=== PATIENT | female | born 1960 | race Hispanic/Latino ===

== ENCOUNTER 2018-12-25 11:08 | Day surgery (SDC) | payer MEDICARE ==
[~2018-12-25] VITALS: Ht 152.4 cm; Wt 81.2 kg
[~2018-12-25 11:08] MED LIST: ATOR40TA69 PO; FERS325 PO; FURO20TA4 PO; GLIP10TA19 PO; INS7030 SQ; INSLAN SQ; IPRA3AMP24 IH; LOSA50TA64 PO; METO25TA6 PO; NITR100C4 PO; OMEP20CA10 PO; SODIUM CHLORIDE 0.9% 1000ML 1,000 ML IV ONE; TYL3 PO
[2018-12-25 12:45] VITALS: BP 184/71
[2018-12-25] MEDS ORDERED: GABA-531 PO (13:01)
[2018-12-25] MEDS ORDERED: CARV12.511 PO (13:01)
[2018-12-25] MEDS ORDERED: PRAV10TA39 PO (13:01)
[2018-12-25] MEDS ORDERED: INSLAN SQ (13:01)
[2018-12-25] MEDS ORDERED: TRULICITY (13:01)
[2018-12-25] MEDS ORDERED: METO5TAB2 PO (13:01)
[2018-12-25] MEDS ORDERED: TELM80TA10 PO (13:01)
[2018-12-25] MEDS ORDERED: INSU100I15 SQ (13:01)
[2018-12-25] MEDS ORDERED: LIDOCAINE HCL-MPF 2% 5ML VIAL ONE (14:09)
[2018-12-25] MEDS ORDERED: GLYCOPYRROLATE 0.2 MG/ML 5 ML VIAL ONE (14:09)
[2018-12-25] MEDS ORDERED: PROPOFOL 10 MG/ML 20ML VIAL IV ONE (14:09)
[2018-12-25 14:28] VITALS: BP 129/70
[2018-12-25 14:33] VITALS: BP 148/59
[2018-12-25 14:38] VITALS: BP 161/76
[2018-12-25 14:43] VITALS: BP 131/55
[2018-12-25 14:50] VITALS: BP 157/59
== END 2018-12-25 15:10 | disposition home or self-care (01) ==
LOC: DAH 11:08
PROVIDERS: ATTEND Internal Medicine
DX: Z12.11 Encounter for screening for malignant neoplasm of colon (principal); K62.1 Rectal polyp; K57.30 Diverticulosis of large intestine without perforation or abscess without bleeding; K64.8 Other hemorrhoids; E78.5 Hyperlipidemia, unspecified; I12.9 Hypertensive chronic kidney disease with stage 1 through stage 4 chronic kidney disease, or unspecified chronic kidney disease; E11.22 Type 2 diabetes mellitus with diabetic chronic kidney disease; N18.9 Chronic kidney disease, unspecified; Z68.35 Body mass index [BMI] 35.0-35.9, adult; Z99.2 Dependence on renal dialysis; Z90.710 Acquired absence of both cervix and uterus; Z79.899 Other long term (current) drug therapy
CPT/HCPCS: 36415; 45380; 82948 ×2; 84132; A4606; J2704; J3490 ×2; J7030

== ENCOUNTER 2020-06-23 06:01 | Day surgery (SDC) | payer MEDICARE ==
[2020-06-19 13:36] LABS: BASOPHILS % (AUTO) 0.5 % (0.0-5.0); EOSINOPHILS % (AUTO) 2.8 % (0.0-8.0); HEMATOCRIT 30.5 % (36-48); LYMPHOCYTES % (AUTO) 14.5 % (21.0-51.0); MEAN CORPUSCULAR HEMOGLOBIN 31.1 pg (27.0-33.0); MEAN CORPUSCULAR HGB CONC 34.1 g/dL (32.0-36.0); MEAN CORPUSCULAR VOLUME 91.3 fL (79-99); MONOCYTES % (AUTO) 6.1 % (3.0-13.0); NEUTROPHILS % (AUTO) 75.9 % (40.0-77.0); PLATELET COUNT (AUTO) 222 K/uL (130-400); RED BLOOD CELL COUNT(AUTO) 3.34 MIL/uL (4.00-5.50); RED CELL DISTRIBUTION WIDTH 13.3 % (11.0-15.5); WHITE BLOOD COUNT (AUTO) 5.7 K/uL (4.8-10.8)
[2020-06-19 13:53] LABS: INR 1.01 (0.85-1.15); PARTIAL THROMBOPLASTIN TIME 25.4 SEC (26.3-35.5); PROTHROMBIN TIME 10.9 SEC (9.6-11.6)
[2020-06-19 13:54] LABS: ALBUMIN 3.8 g/dL (3.5-5.0); BILIRUBIN,TOTAL 0.5 mg/dL (0.2-1.0); CREATININE 3.5 mg/dL (0.5-1.5); POTASSIUM 3.6 mmol/L (3.5-5.1); TOTAL PROTEIN, SERUM 7.9 g/dL (6.0-8.3)
[2020-06-22 09:30] VITALS: BP 201/70
--- NOTE | 2020-06-22 10:13 | NUR ---
RE: ABNORMAL LABS REPORTED ABNORMAL BMP AND CBC TO JIMY RIBEIRO RN. ALSO REPORTED ABNORMAL CHEST XRAY RESULTS, NO NEW ORDERS. ABNORMAL EKG REPORTED TO DR MONTIEL, NO NEW ORDERS RECEIVED.
--- NOTE | 2020-06-22 16:46 | NUR ---
Meds Spoke to daughter regarding meds. States she is not home and does not have them with her. States pt is on Eliquis and Plavix and says pt took one of them this morning but doesn't know which one. Called Dr. Davis/Kelsi to make aware. Order received to have 1 unit of FFP available. Order entered. Addendum: 06/22/20 at 1649 by CECE CHICAS RN RN Made proceed with surgery
[2020-06-23] VITALS (20 sets, daily range): BP systolic 66–159; BP diastolic 32–91
[~2020-06-23] VITALS: Ht 152.4 cm; Wt 80.2 kg
[~2020-06-23 06:01] MED LIST changes: -ATOR40TA69 PO; +CARV12.511 PO; +CEFAZOLIN SODIUM 1 GM VIAL IVP ONE; -FERS325 PO; -FURO20TA4 PO; +GABA-531 PO; -GLIP10TA19 PO; -INS7030 SQ; +INSU100I15 SQ; -IPRA3AMP24 IH; -LOSA50TA64 PO; -METO25TA6 PO; +METO5TAB2 PO; -NITR100C4 PO; -OMEP20CA10 PO; +PRAV10TA39 PO; -SODIUM CHLORIDE 0.9% 1000ML 1,000 ML IV ONE; +TELM80TA10 PO; +TRULICITY
[2020-06-23] MEDS ORDERED: CEFAZOLIN SODIUM 1 GM VIAL ONE ×2 (06:48→07:07)
--- NOTE | 2020-06-23 07:00 | NUR ---
JIMY RIBEIRO RN FOR DR. GUADARRAMA WAS CALLED BY [place] OR CIRCULATING NURSE AND ASKED WHAT SITE CAN IV BE INSERTED. PT HAS AN AV FISTULA TO LEFT UPPER ARM AND STATED SITE HAS NOT BEEN USED FOR 2 MONTHS NOW DUE TO HER HAND WOULD GET COLD, TEMPORARY DIALYSIS ACCESS IS BEING USED. PER JIMY, MAY INSERT IV TO LEFT HAND.
[2020-06-23] MEDS ORDERED: SODIUM CHLORIDE 0.9% 500ML 500 ML IV ONE (07:17)
[2020-06-23] MEDS ORDERED: CARV12.511 PO (07:32)
[2020-06-23] MEDS ORDERED: CLOP75TA32 PO (07:32)
[2020-06-23] MEDS ORDERED: BENZ-51 PO (07:32)
[2020-06-23] MEDS ORDERED: FOLI1TAB85 PO (07:32)
[2020-06-23] MEDS ORDERED: APIX5TAB PO (07:32)
[2020-06-23] MEDS ORDERED: INSU200I SQ (07:32)
[2020-06-23] MEDS ORDERED: DOXA1TAB2 PO (07:32)
[2020-06-23] MEDS ORDERED: ROPIVACAINE 0.5% 5MG/ML 30ML IJ ONE (07:45)
[2020-06-23] MEDS ORDERED: KETAMINE 50MG/ML SYRINGE 50 MG/ML DISP.SYRIN IV ONE (07:45)
[2020-06-23] MEDS ORDERED: PROPOFOL 1000 MG/100 ML 100 ML IV ONE (07:45)
[2020-06-23] MEDS ORDERED: MIDAZOLAM HCL 1 MG/ML 2ML VIAL ONE (07:49)
[2020-06-23] MEDS ORDERED: EPHEDRINE SULFATE 50 MG/ML AMPULE ONE ×3 (08:08→09:18)
--- NOTE | 2020-06-23 11:30 | NUR ---
UPON ASSISTING PT TO GET DRESSED I NOTED SOME MILD INCREASE IN SWELLING TO RT ARM AV FISTULA SITE. THER IS NO EXTERNAL BLEEDING AND RT HAND IS PINK AND WARM.CONTINUES WITH BRUIT/THRILL. I MARKED THE AREA WITH A PERMANENT MARKER AND CALLED DR GUADARRAMA. HE ASKED THAT PT REPORT ANY WORSENING TO HIS OFFICE PRN. I INSTRUCTED THE PT DAUGHTER AT BEDSIDE AND GAVE HER DR TOUSSAINT OFFICE NUMBER. PRINTED AND VERBAL DISCHARGE INSTRUCTIONS . VERBALI UNDERSTANDING. I WILL MONITOR PRN BEFORE DISCHARGING PT.
--- NOTE | 2020-06-23 12:00 | NUR ---
PT DISCHARGED HOME WITH DAUGHTER. THERE WAS NO INCREASE SWELLING TO RT ARM FISTULA SITE. NO ACTIVE BLEEDING NOTED. BRUIT PRESENT. RT HAND WARM AND PINK. ENCOURAGED PT AND DAUGHTER TO KEEP ARM SLIGHTLY ELEVATED WITH A PILLOW. PT COULD MOVE DIGITS DISTALLY TO RT HAND AND COULD FEEL TACTILE STIMULATION. PT HAD NO PAIN. BP 114/59, HR 72, O2 SAT 95% RM AIR. IV CATHETER TO LEFT WRIST REMOVED INTACT AND GAUZE APPLIED.
== END 2020-06-23 12:00 | disposition home or self-care (01) ==
LOC: DAH 06:01
PROVIDERS: ATTEND Thoracic Surgery (Cardiothoracic Vascular Surgery)
DX: E11.22 Type 2 diabetes mellitus with diabetic chronic kidney disease (principal); T82.898A Other specified complication of vascular prosthetic devices, implants and grafts, initial encounter; Z20.828 Contact with and (suspected) exposure to other viral communicable diseases; N18.6 End stage renal disease; E66.9 Obesity, unspecified; Z99.2 Dependence on renal dialysis; Z79.01 Long term (current) use of anticoagulants; Z79.899 Other long term (current) drug therapy; Y83.2 Surgical operation with anastomosis, bypass or graft as the cause of abnormal reaction of the patient, or of later complication, without mention of misadventure at the time of the procedure
CPT/HCPCS: 36415 ×2; 36821; 71045; 76942; 80053; 82948 ×4; 85025; 85610; 85730; 86850 ×2; 86900 ×2; 86901 ×2; 86923; 93005; A4215 ×2; A4216 ×2; A4221 ×2; A4222 ×2; A4223 ×5; A4606; A4663 ×2; A4930; A6207; C1713 ×2; C9803; G0168; J0690 ×2; J1644; J2250; J2704; J2795; J3490 ×4; J7040; U0003

== ENCOUNTER 2021-11-02 09:40 | Day surgery (SDC) | payer MEDICARE ==
[2021-10-28 15:30] LABS: CREATININE 5.5 mg/dL (0.5-1.5); POTASSIUM 4.2 mmol/L (3.5-5.1)
[~2021-11-02] VITALS: Ht 152.4 cm; Wt 70.8 kg
[~2021-11-02 09:40] MED LIST changes: +APIX5TAB PO; +BENZ-70 PO; -CEFAZOLIN SODIUM 1 GM VIAL IVP ONE; +CLOP75TA32 PO; +DOXA1TAB2 PO; +FOLI1TAB85 PO; -INSU100I15 SQ; +INSU200I SQ; -TYL3 PO
[2021-11-02 10:27] VITALS: BP 161/77
[2021-11-02] MEDS ORDERED: OMEP40CA21 PO (10:48)
[2021-11-02] MEDS ORDERED: FAMO40TA7 PO (10:48)
[2021-11-02 11:00] LABS: CREATININE 5.1 mg/dL (0.5-1.5); POTASSIUM 3.9 mmol/L (3.5-5.1)
[2021-11-02] MEDS ORDERED: PROPOFOL 10 MG/ML 20ML VIAL IV ONE (12:24)
[2021-11-02] MEDS ORDERED: LIDOCAINE PF 100MG/5ML (2%) SYRINGE 5ML ONE (12:24)
== END 2021-11-02 12:56 | disposition home or self-care (01) ==
LOC: ENDO 09:40 → DAH 09:40 → ENDO 12:56
PROVIDERS: ATTEND Internal Medicine Gastroenterology
DX: R10.13 Epigastric pain (principal); Z20.822 Contact with and (suspected) exposure to COVID-19; R14.0 Abdominal distension (gaseous); K29.50 Unspecified chronic gastritis without bleeding; K31.89 Other diseases of stomach and duodenum; I10 Essential (primary) hypertension; E78.5 Hyperlipidemia, unspecified; I25.10 Atherosclerotic heart disease of native coronary artery without angina pectoris; E11.9 Type 2 diabetes mellitus without complications; N19 Unspecified kidney failure; Z98.890 Other specified postprocedural states; Z90.49 Acquired absence of other specified parts of digestive tract; Z90.710 Acquired absence of both cervix and uterus; Z98.49 Cataract extraction status, unspecified eye; Z79.899 Other long term (current) drug therapy
CPT/HCPCS: 36415 ×2; 43239; 80048 ×2; 82948 ×2; 87635; 93005; A4215 ×2; A4221; A4222; A4223; A4606; A4620; A4657; A4663; C9803; J2001; J2704; J7030

== ENCOUNTER 2022-01-21 00:03 | Emergency (ER) | payer MEDICARE ==
[~2022-01-21 00:03] MED LIST changes: -APIX5TAB PO; +FAMO40TA7 PO; -FOLI1TAB85 PO; +OMEP40CA21 PO
[2022-01-21 00:36] LABS: BASOPHILS % (AUTO) 0.7 % (0.0-5.0); EOSINOPHILS % (AUTO) 0.8 % (0.0-8.0); HEMATOCRIT 37.3 % (36-48); LYMPHOCYTES % (AUTO) 9.5 % (21.0-51.0); MEAN CORPUSCULAR HEMOGLOBIN 30.9 pg (27.0-33.0); MEAN CORPUSCULAR HGB CONC 34.3 g/dL (32.0-36.0); MEAN CORPUSCULAR VOLUME 90.1 fL (79-99); MONOCYTES % (AUTO) 6.9 % (3.0-13.0); NEUTROPHILS % (AUTO) 81.7 % (40.0-77.0); PLATELET COUNT (AUTO) 248 K/uL (130-400); RED BLOOD CELL COUNT(AUTO) 4.14 MIL/uL (4.00-5.50); RED CELL DISTRIBUTION WIDTH 14.6 % (11.0-15.5); WHITE BLOOD COUNT (AUTO) 7.6 K/uL (4.8-10.8)
[2022-01-21 00:45] LABS: CREATININE 6.2 mg/dL (0.5-1.5); POTASSIUM 3.6 mmol/L (3.5-5.1)
[2022-01-21 00:50] LABS: ALBUMIN 3.9 g/dL (3.5-5.0); BILIRUBIN,TOTAL 0.8 mg/dL (0.2-1.0); TOTAL PROTEIN, SERUM 7.7 g/dL (6.0-8.3)
[2022-01-21] MEDS ORDERED: LABETALOL 20MG SYG IV STA (01:29)
[2022-01-21 04:29] VITALS: BP 152/77
== END 2022-01-21 04:50 | disposition short-term general hospital (02) ==
LOC: EDH 00:03
DX: U07.1 COVID-19 (principal); I62.9 Nontraumatic intracranial hemorrhage, unspecified; E11.9 Type 2 diabetes mellitus without complications; I10 Essential (primary) hypertension; Z79.899 Other long term (current) drug therapy
CPT/HCPCS: 36415; 70450; 71045; 80053; 83605; 84484; 85025; 87040 ×2; 87635; 93005; 96374; 99291; C9803